=== PATIENT | female | born 1965 | race Caucasian/White ===

== ENCOUNTER → 2020-05-29 15:48 | Outpatient (BNVA) | payer MEDICARE, SELFPAY | PROVIDERS: Visit Provider Nurse Practitioner Family | DX: N39.0 Urinary tract infection, site not specified (principal); I10 Essential (primary) hypertension | CPT/HCPCS: 80053; 81000 ==

== ENCOUNTER → 2020-09-22 12:15 | Outpatient (BNVA) | payer MEDICARE, SELFPAY | PROVIDERS: Visit Provider Nurse Practitioner Family | DX: Z20.828 Contact with and (suspected) exposure to other viral communicable diseases (principal) | CPT/HCPCS: 87635 ==

== ENCOUNTER → 2021-05-01 12:03 | Outpatient (BNVA) | payer MEDICARE, SELFPAY | PROVIDERS: PCP Nurse Practitioner; Visit Provider Nurse Practitioner Family | DX: Z20.822 Contact with and (suspected) exposure to COVID-19 (principal); J06.9 Acute upper respiratory infection, unspecified | CPT/HCPCS: 87635 ==

== ENCOUNTER 2021-05-03 11:41 | Outpatient (CLI) | payer MEDICARE, SELFPAY ==
[2021-05-03 12:25] VITALS: BP 165/88; PULSE 64; RESP 16; TEMP 36.8; O2SAT 98; BMI 21.4
[2021-05-03 12:40] VITALS: BP 140/78; PULSE 60; RESP 16; O2SAT 98
[2021-05-03 13:23] VITALS: BP 158/75; PULSE 55; RESP 16; TEMP 37; O2SAT 99
== END 2021-05-03 11:42 | disposition home or self-care (01) ==
PROVIDERS: PCP Nurse Practitioner; Visit Provider Nurse Practitioner Family
DX: U07.1 COVID-19 (principal)
CPT/HCPCS: 96365

== ENCOUNTER 2021-06-24 08:26 | Outpatient (CLI) | payer MEDICARE, SELFPAY ==
--- NOTE | 2021-06-24 08:45 | MR_ITS ---
WS: [id number] MRI LUMBAR SPINE NONCONTRAST TECHNIQUE: Sagittal T1, T2 and STIR imaging. Axial T1 and T2 imaging. CLINICAL INFORMATION: HX OF LUMBAR FUSION COMPARISON: None. FINDINGS: Some images degraded due to susceptibility artifact from hardware. Mild lumbar curve. No acute compre ssion. Pedicle screw fixation L2-3 with interbody fusion graft. Interbody fusion grafts L2-L5. Gera ctomy defects. Slightly annular bulging T12-L1 with a tiny annular fissure. L1-L2: Slight anterolisthesis L1 on L2 with mild disc bulging. This results in moderate central canal stenosis with narrowing of the subarticular recess bilaterally. Moderate bilateral foraminal narrowi ng. Moderate facet arthropathy. L2-L3: Postoperative changes pedicle screw fixation with interbody fusion. Spinal canal and foramen a re patent. L3-L4: Interbody fusion grafts. Pedicle screw fixation. Laminectomy defects. Spinal canal and foramen are patent. L4-L5: Prior postoperative changes laminectomy defects. Spinal canal and foramen are patent. Prior po stoperative changes laminectomy defects. Spinal canal and foramen are patent. L5-S1: Normal. Visualized pelvic bony structures: Normal. Paravertebral soft tissues: Normal. MR/MR lumbar spine wo con* [id number] IMPRESSION: 1. Mild lumbar curve. No acute compression. 2. Moderate central canal stenosis L1-2 due to grade 1 anterolisthesis with mi ld disc bulging in combination with facet arthropathy and ligamentum flavum hyp ertrophy. Slight impingement on the subarticular recess. Moderate bilateral for aminal narrowing at this level. 3. Mild annular bulging T12-L1 with a tiny annular fissure. 4. Pedicle screw fixation L2-3 with interbody fusion grafts L2-L5. 5. Decompressive laminectomy defects. 6. No central canal stenosis or foraminal narrowing L2-L5.
== END 2021-06-24 08:27 | disposition home or self-care (01) ==
PROVIDERS: PCP Nurse Practitioner; Visit Provider Nurse Practitioner
DX: Z98.1 Arthrodesis status (principal); M96.1 Postlaminectomy syndrome, not elsewhere classified; M51.25 Other intervertebral disc displacement, thoracolumbar region; M48.061 Spinal stenosis, lumbar region without neurogenic claudication; M47.816 Spondylosis without myelopathy or radiculopathy, lumbar region
CPT/HCPCS: 72148